=== PATIENT | male | born 1995 | race Caucasian/White ===

== ENCOUNTER → 2016-06-09 | Outpatient (CLI) | payer OTHER ==
--- NOTE | 2016-06-09 14:31 | Diagnostic Imaging Report ---
EXAMINATION: Scrotal ultrasound. INDICATION: Left scrotal swelling and pain. FINDINGS: The right testicle is 5.6 x 2.8 x 3.6 cm. The left testicle is 5.2 x 2.5 x 3.3 cm. There is homogeneous echotexture of both testicles. No solid mass is identified. A minimal hydrocele is seen on both sides. There are bilateral mild varicoceles. The dilated pampiniform plexus diameter is up to 2-3 mm. IMPRESSION: Bilateral mild varicoceles. Dictated by: Dictated on workstation # [id number]
== END ==
LOC: RAD 08:33
PROVIDERS: ATTEND Nurse Practitioner Family
DX: I86.1 Scrotal varices (principal); N50.82 Scrotal pain
CPT/HCPCS: 76870

== ENCOUNTER 2016-07-29 12:00 | Outpatient (CLI) | payer OTHER ==
[~2016-07-29] VITALS: Ht 195.6 cm; Wt 115.7 kg
== END 2016-07-29 12:42 ==
LOC: PREOP 12:00
PROVIDERS: ATTEND Urology
DX: Z01.818 Encounter for other preprocedural examination (principal); I86.1 Scrotal varices

== ENCOUNTER 2016-08-02 06:16 | Day surgery (SDC) | payer OTHER ==
[~2016-08-02] VITALS: Ht 195.6 cm; Wt 115.7 kg
[2016-08-02] MEDS ORDERED: LACTATED RINGERS 1,000 ML IV PRN (06:29)
[2016-08-02] MEDS ORDERED: proPOfol 200 MG/20 ML (DIPRIVAN) VIAL IV ONE (06:30)
[2016-08-02] MEDS ORDERED: ONDANSETRON 4 MG/2 ML (SDV) Z0FRAN ONE (06:30)
[2016-08-02] MEDS ORDERED: LIDOCAINE PF 0.5% 50 ML (XYLOCAINE) VIAL ONE (06:30)
[2016-08-02] MEDS ORDERED: ROCURONIUM 50 MG/5 ML (ZEMURON) VIAL IV ONE (06:30)
[2016-08-02] MEDS ORDERED: DEXAMETHASONE PF 10 MG/ML (DECADRON) VIAL ONE (06:30)
[2016-08-02] MEDS ORDERED: fentaNYL INJECTION 100 MCG/2 ML AMP ONE ×2 (06:30→07:37)
[2016-08-02] MEDS ORDERED: SEVOFLURANE (ULTANE) 15 ML INHAL SOLN ONE ×4 (06:30→08:24)
[2016-08-02] MEDS ORDERED: MIDAZOLAM 2 MG/2 ML (VERSED) VIAL ONE (06:31)
[2016-08-02 07:00] VITALS: BP 114/64
[2016-08-02] MEDS ORDERED: ceFAZolin 1,000 MG (ANCEF) VIAL ONE (07:10)
[2016-08-02] MEDS ORDERED: NS (IVPB) 50 ML ONE (07:11)
--- NOTE | 2016-08-02 07:14 | Progress Note-Pre Operative ---
Pre-Operative Progress Note H&P Reviewed The H&P was reviewed, patient examined and no changes noted. Date Seen by Provider: Aug 02, 2016 Time Seen by Provider: 07:13 Date H&P Reviewed: Aug 02, 2016 Time H&P Reviewed: 07:13 Pre-Operative Diagnosis: Lt grade 2/3 symptomatic varicocele JAZMIN DAVIS MD Aug 02, 2016 7:14 am
--- NOTE | 2016-08-02 07:15 | Progress Note-Post Operative ---
Post-Operative Progess Note Surgeon (s)/Medical Voucher Clerk (s) Surgeon JAZMIN DAVIS MD Medical Voucher Clerk: N/A Pre-Operative Diagnosis Lt grade 2/3 symptomatic varicocele Post-Operative Diagnosis SAME Procedure & Operative Findings Date of Procedure 08/02/16 Procedure Performed/Findings LT SPERMATIC VEIN LIGATION Anesthesia Type GENERAL Estimated Blood Loss Estimated blood loss (mL): N/A Specimens/Packing Specimens Removed 2 SPERMATIC VEINS JAZMIN DAVIS MD Aug 02, 2016 7:15 am
--- NOTE | 2016-08-02 07:17 | Discharge Inst-Urology ---
Discharge Inst-Urology Discharge Medications New, Converted, or Re-newed RX: RX on Chart Patient Instructions/Follow Up Plan Please make appointment to been seen in office in 2 weeks. Rest till then Ice to Lt groin and scrotum in RR and at home for 6hrs and then PRN Tomorrow start showers, no bath Diet as tolerated. Keep bowels soft and moving If questions or concerns contact your physician Or seek help at emergency department. JAZMIN DAVIS MD Aug 02, 2016 7:17 am
[2016-08-02] MEDS ORDERED: ceFAZolin 1 GM/NS 50 ML IVPB IV ONE ×2 (07:30)
[2016-08-02] MEDS ORDERED: HYDROmorphone (DILAUDID) 2 MG/ML VIAL IVP PRN (08:45)
[2016-08-02] MEDS ORDERED: morphine INJ 10 MG/ML 1ML (SYR OR VIAL) IVP PRN (08:45)
[2016-08-02] MEDS ORDERED: PROMETHAZINE INJ 25 MG/ML (PHENERGAN) AMP IVP PRN (08:45)
[2016-08-02] MEDS ORDERED: ONDANSETRON 4 MG/2 ML (SDV) Z0FRAN IVP PRN (08:45)
[2016-08-02] MEDS ORDERED: HYDR-3876 PO (08:55)
[2016-08-02] MEDS ORDERED: CEPH-507 PO (08:55)
[2016-08-02 09:25] VITALS: BP 113/61
[2016-08-02 09:55] VITALS: BP 109/59
[2016-08-02] MEDS ORDERED: HYDROcodone/APAP 10 MG/325 MG (LORTAB) TAB PO ONE (09:55)
[2016-08-02 10:25] VITALS: BP 118/53
[2016-08-02 10:45] VITALS: BP 118/53
--- NOTE | 2016-08-02 18:18 | OPERATIVE REPORT ---
DATE OF SERVICE: 08/02/2016 PREOPERATIVE DIAGNOSIS: Left symptomatic grade 2-3 varicocele. POSTOPERATIVE DIAGNOSIS: Left symptomatic grade 2-3 varicocele. OPERATION PERFORMED: Left spermatic cord ligation. SURGEON: Jazmin Davis MD ANESTHESIA: General. COMPLICATIONS: None. PROCEDURE IN DETAIL: Under satisfactory general anesthesia, the patient in the supine position, abdomen, genitalia and thigh were prepped and draped in usual sterile fashion. A left inguinal incision was made, carried through the skin, subcutaneous tissue, and Mariela's fascia. Bleeders were cauterized as the dissection was proceeding. The external oblique aponeurosis was incised along the direction of the fiber. The ilioinguinal nerve was identified and preserved at all time including closure of the wound. The spermatic cord was identified. The loop was passed around it and dissection was carried through the left internal inguinal ring where two large spermatic veins were identified, a good portion of them were excised and the end ligated with 2-0 silk ligature. There was a small vein in the back of the spermatic cord that was dealt accordingly. There were no veins in the floor of the canal. No evidence of arterial injury. The vas deference and vessels around it intact. The testicle felt firm and nice throughout the operation including the end. Hemostasis was complete. The spermatic cord was put at its place and closure was performed in layers. The external oblique aponeurosis with interrupted 2-0 silk suture taking care to avoid the ilioinguinal nerve. The Mariela's fascia and subcutaneous tissue with interrupted 3-0 plain, and the skin with subcuticular running 4-0 Vicryl suture. Steri-Strips were applied as well as the dressing. Needle, sponge, and instrument counts were correct x2. Estimated blood loss was negligible, none of which was replaced. The patient tolerated the procedure and anesthesia well and was sent to recovery room in stable condition. Instructions were given to his mother. Job ID: [id number] DocumentID: [id number] Dictated Date: 08/02/2016 08:35:20 Head Coach Date: 08/02/2016 12:29:59 Dictated By: JAZMIN DAVIS MD
== END 2016-08-02 10:45 | disposition home or self-care (01) ==
LOC: SDC 06:16
PROVIDERS: ATTEND Urology
DX: I86.1 Scrotal varices (principal); E66.01 Morbid (severe) obesity due to excess calories; Z68.30 Body mass index [BMI] 30.0-30.9, adult; Z11.2 Encounter for screening for other bacterial diseases
CPT/HCPCS: 87081